=== PATIENT | male | born 1980 | race Caucasian/White ===

== ENCOUNTER 2018-04-01 02:41 | Emergency (ER) | payer MEDICAID ==
[~2018-04-01] VITALS: Ht 185.4 cm; Wt 81.6 kg
[~2018-04-01 02:41] MED LIST: SYMBOXIN
[2018-04-01 03:00] VITALS: BP 136/94
[2018-04-01] MEDS ORDERED: HYDROcodone-ACET 10/325MG TAB PO ONE (05:15)
[2018-04-01] MEDS ORDERED: cefTRIAXone SOD 1,000 MG VL IM ONE (05:15)
[2018-04-01] MEDS ORDERED: methylPREDNISolone SOD SUCC 125 MG/2 ML VL IM ONE (05:15)
== END 2018-04-01 05:37 | disposition home or self-care (01) ==
LOC: ER 02:41
DX: K04.7 Periapical abscess without sinus (principal); F17.200 Nicotine dependence, unspecified, uncomplicated
CPT/HCPCS: 96372; 99283; J0696; J2930